=== PATIENT | female | born 1950 | race Caucasian/White ===

== ENCOUNTER → 2016-04-22 | Outpatient (CLI) | payer BC | LOC: GMAB 10:33 | PROVIDERS: ATTEND Family Medicine | DX: Z00.00 Encounter for general adult medical examination without abnormal findings (principal) ==

== ENCOUNTER → 2016-07-08 | Outpatient (CLI) | payer BC ==
--- NOTE | 2016-07-09 10:32 | MAM ---
History: Well woman exam. Date of exam: 07/08/2016 Services provided: Bilateral full field digital screening mammography. CAD, the images were reviewed with R2 computer aided detection. FINDINGS: Glandular tissue is scattered glandular contour with increased mammographic density. Bilateral subglandular implants are in place. Comparison with 2013 exam. No dominant mass, architectural distortion or clustered microcalcification. IMPRESSION: Benign exam Recommendation: Routine annual mammography BIRAD CATEGORY: 2 BENIGN Electronically signed by: Laney Jean MD 07/09/2016 10:31 AM CDT
== END | disposition home or self-care (01) ==
LOC: MAMMO 10:40
PROVIDERS: ATTEND Family Medicine
DX: Z12.31 Encounter for screening mammogram for malignant neoplasm of breast (principal)

== ENCOUNTER → 2017-04-06 | Outpatient (CLI) | payer MEDICARE, OTHER ==
--- NOTE | 2017-04-06 23:53 | RAD ---
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 No pneumothorax or pleural effusion. Aortic atherosclerosis. Normal cardiac silhouette. Impression: No acute disease. Electronically signed by: Adam Petty MD 04/06/2017 11:52 PM RV TECHNICIAN
== END | disposition home or self-care (01) ==
LOC: LAB.O 13:59
PROVIDERS: ATTEND Nurse Practitioner Family
DX: I10 Essential (primary) hypertension (principal); J11.00 Influenza due to unidentified influenza virus with unspecified type of pneumonia

== ENCOUNTER → 2017-06-23 | Outpatient (CLI) | payer MEDICARE, OTHER ==
--- NOTE | 2017-06-23 17:34 | RAD ---
EXAM DESCRIPTION: Chest,2 Views CLINICAL HISTORY: SYNCOPE COMPARISON: Previous study April 06, 2017 TECHNIQUE: PA/lateral FINDINGS: There is no acute appearing cardiac or pulmonary abnormality. Heart size is normal with normal pulmonary vascularity. No pleural effusion or pneumothorax. Lungs are clear with no consolidating infiltrate. Lateral view shows intact sternum and T-spine. IMPRESSION: No acute process is identified in the chest. Electronically signed by: Jose Roman MD 06/23/2017 5:32 PM CDT
== END | disposition home or self-care (01) ==
LOC: LAB.O 11:12
PROVIDERS: ATTEND Nurse Practitioner Family
DX: R55 Syncope and collapse (principal); N39.0 Urinary tract infection, site not specified

== ENCOUNTER 2017-06-27 09:22 | Emergency (ER) | payer MEDICARE, OTHER ==
--- NOTE | 2017-06-27 09:44 | ED.PDOC ---
History of Present Illness - General Chief Complaint: Skin/Abrasion/Tear Stated Complaint: Rash on Chest x 1 day Time Seen by Provider: 06/27/17 09:38 Source: patient Exam Limitations: no limitations - History of Present Illness Initial Comments: the patient is a 66-year-old female presenting to the emergency room with a rash that has developed over the last 24 hours to the right side of her torso. It extends from slightly below the right scapula around the right side of her chest just underneath the breast. There are vesicles. It is fairly pathognomonic for shingles. It does not cross the midline. It is painful. She has not had shingles in this distribution before. Timing/Duration: 24 hours Severity: moderate Improving Factors: nothing Worsening Factors: nothing Associated Symptoms: denies symptoms Allergies/Adverse Reactions: Allergies Codeine Allergy (Verified 06/27/17 09:39) Penicillins Allergy (Verified 06/27/17 09:39) Telithromycin Allergy (Verified 06/27/17 09:39) Home Medications: Ambulatory Orders Tfzfsbxtrahqm-Mwbs-Mfkurecbua [Fioricet] 1 ea PO Q8H PRN #21 tab 06/27/17 Albuterol Inhaler [Ventolin Hfa Inhaler] 1 puff INH TID PRN 06/27/17 Loratadine [Claritin] 10 mg PO DAILY PRN 06/27/17 Losartan Potassium & Hydrochlo [Losartan Potassium/Hydroc 100-12.5 mg] 1 tab PO DAILY 06/27/17 Simvastatin [Simvastatin] 40 mg PO DAILY 06/27/17 Valacyclovir HCl [Valtrex] 1 gm PO Q8HR #20 tab 06/27/17 Review of Systems - Review of Systems Constitutional: States: no symptoms reported EENTM: States: no symptoms reported Respiratory: States: no symptoms reported Cardiology: States: see HPI Gastrointestinal/Abdominal: States: no symptoms reported Genitourinary: States: no symptoms reported Musculoskeletal: States: no symptoms reported Skin: States: see HPI Neurological: States: no symptoms reported Endocrine: States: no symptoms reported All other Systems: No Change from Baseline Physical Exam - Physical Exam General Appearance: Alert, Comfortable, No apparent distress Eye Exam: bilateral normal Ears, Nose, Throat: hearing grossly normal, normal ENT inspection Neck: full range of motion, supple Respiratory: no respiratory distress, no accessory muscle use Cardiovascular/Chest: normal peripheral pulses, no edema, other - regular rate Peripheral Pulses: radial,right: 2+, radial,left: 2+ Gastrointestinal/Abdominal: soft Rectal Exam: deferred Back Exam: no vertebral tenderness Extremity: non-tender, normal inspection, no pedal edema, normal capillary refill 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 The patient will be placed on Valtrex 1 g 3 times a day for 7 days. She can use oral ibuprofen as needed or Aleve as needed. She will initially be written for Fioricet for as needed use and she can use [id number] topical numbing creams containing medications such as lidocaine to help reduce discomfort. She does need to try and avoid exposing the area to anyone that has a somewhat immunocompromised state such as older people, people on chemotherapy or very small children. Rash will probably take a couple of weeks to clear up. ER warnings were given for any significant worsening. Follow up with primary care doctor in 1-2 weeks. Departure - Departure Clinical Impression: Shingles Qualifiers: Herpes zoster complications: without complications Qualified Code(s): B02.9 - Zoster without complications Disposition: Discharge to Home or Self Care Condition: Fair Departure Forms: ED Discharge - Pt. Copy, Patient Portal Self Enrollment Instructions: DI for Shingles Diet: regular diet Activity: increase activity as tolerated Referrals: [facility] E[facility] [Primary Care Provider] - 1-2 Weeks Prescriptions: Valacyclovir HCl [Valtrex] 1 gm PO Q8HR #20 tab Ddsxfjyskbikf-Awor-Zkwasakdkx [Fioricet] 1 ea PO Q8H PRN #21 tab PRN Reason: Pain Home Medications: Ambulatory Orders Rdhdgumzyptja-Rfob-Vkhthtingi [Fioricet] 1 ea PO Q8H PRN #21 tab 04/07/18 Albuterol Inhaler [Ventolin Hfa Inhaler] 1 puff INH TID PRN 06/27/17 Loratadine [Claritin] 10 mg PO DAILY PRN 06/27/17 Losartan Potassium & Hydrochlo [Losartan Potassium/Hydroc 100-12.5 mg] 1 tab PO DAILY 06/27/17 Simvastatin [Simvastatin] 40 mg PO DAILY 06/27/17 Valacyclovir HCl [Valtrex] 1 gm PO Q8HR #20 tab 06/27/17 Additional Instructions: the patient is a 66-year-old female presenting with a rash that appears to be fairly pathognomonic for shingles. The patient will be placed on Valtrex 1 g 3 times a day for 7 days. She can use oral ibuprofen as needed or Aleve as needed. She will initially be written for Fioricet for as needed use and she can use [id number]-uvb-ryuvdoa topical numbing creams containing medications such as lidocaine to help reduce discomfort. She does need to try and avoid exposing the area to anyone that has a somewhat immunocompromised state such as older people, people on chemotherapy or very small children. Rash will probably take a couple of weeks to clear up. ER warnings were given for any significant worsening. Follow up with primary care doctor in 1-2 weeks.
[2017-06-27 09:47] VITALS: BP 163/86; TEMP 97.4; O2SAT 18
== END 2017-06-27 10:00 | disposition home or self-care (01) ==
LOC: ER 09:22
DX: B02.9 Zoster without complications (principal); Z88.6 Allergy status to analgesic agent; Z88.0 Allergy status to penicillin

== ENCOUNTER → 2020-01-02 | Outpatient (CLI) | payer MEDICARE, OTHER ==
--- NOTE | 2020-01-04 08:12 | US ---
EXAM DESCRIPTION: Renal: Ultrasound. CLINICAL HISTORY: 69 years Female SINGLE RENAL CYSTS RIGHT COMPARISON: None TECHNIQUE: Transcutaneous scanning: Two-dimensional and Doppler modes. FINDINGS: Right kidney measures 11.0 x 5 0.5-5.4 cm; volume 170.2 ml. Mid-renal cortical thickness 10 mm. . Normal cortical echogenicity. No hydronephrosis No echogenic stones. 2.0 cm cyst. Smooth contour of the kidney with no perinephric fluid. Normal vascularity. Proximal ureter not visualized. Left kidney measures 10.6 x 5.3 x 5.3 cm; volume 157.2 ml. Mid-renal cortical thickness 12 mm. Heterogeneously increased echogenicity but less than liver. No hydronephrosis. No echogenic stones. Minimally lobulated contour of the kidney with no perinephric fluid. Normal vascularity.. Proximal ureter not seen. Urinary bladder was visualized. Bladder volume 544 mL. Ureteral jet in the bladder seen bilaterally by color Doppler patient did not void. Abdominal aorta: Normal caliber from the proximal segment of the distal bifurcation. IMPRESSION: 1. Bilateral kidneys with thin cortex and increased echogenicity on the left but less than the liver. These are most likely age related changes. 2 cm cyst in the right kidney. No hydronephrosis or echogenic stones bilaterally. 2. Proximal and distal ureters not seen. Bilateral ureteral jets seen within the bladder. Normal caliber of the abdominal aorta. Electronically signed by: Ko Aguirre MD 01/04/2020 8:10 AM CDT
== END ==
LOC: RAD 14:19
PROVIDERS: ATTEND Urology
DX: N28.1 Cyst of kidney, acquired (principal); N28.9 Disorder of kidney and ureter, unspecified

== ENCOUNTER → 2020-02-02 | Outpatient (CLI) | payer MEDICARE, OTHER | LOC: GMAE 11:01 | PROVIDERS: ATTEND Family Medicine | DX: I10 Essential (primary) hypertension (principal); E78.2 Mixed hyperlipidemia ==